=== PATIENT | female | born 1985 | race African-American/Black ===

== ENCOUNTER 2017-08-05 02:30 | Emergency (ER) | payer OTHER ==
[~2017-08-05] VITALS: Ht 165.1 cm; Wt 125.0 kg
[2017-08-05] MEDS ORDERED: KETOROLAC 30MG/ML VIAL IV STA (03:29)
[2017-08-05] MEDS ORDERED: ONDANSETRON HCL 4MG/2ML VIAL IV STA (03:29)
[2017-08-05 03:52] LABS: BASOPHILS % 0.6 % (0.0-2.0); EOSINOPHILS % 1.1 % (0.0-5.0); HEMATOCRIT. 37.1 % (36.0-48.0); HEMOGLOBIN. 11.8 g/dL (12.0-16.0); LYMPHOCYTES % 36.5 % (20.0-50.0); MEAN CORPUSCULAR HEMOGLOBIN 25.8 pg (28.0-32.0); MEAN PLATELET VOLUME 9.4 fl (7.4-10.4); MONOCYTES % 13.1 % (2.0-8.0); NEUTROPHILS % 48.7 % (40.0-76.0); PLATELET 269 x1000/uL (130-400); RED BLOOD CELL COUNT 4.58 mill/uL (4.2-5.4); RED CELL DISTRIBUTION WIDTH 14.5 % (11.6-14.6)
[2017-08-05 04:05] LABS: CARBON DIOXIDE 27 mEq/L (21-32); CHLORIDE 109 mEq/L (98-107); TROPONIN I < 0.02 ng/mL (0.00-0.04)
[2017-08-05 09:19] VITALS: BP 102/67
[2017-08-05] MEDS ORDERED: IOHEXOL-350 100 ML BOTTLE ONE (09:19)
== END 2017-08-05 09:42 | disposition home or self-care (01) ==
LOC: ER 02:30
DX: R07.89 Other chest pain (principal); R06.02 Shortness of breath
CPT/HCPCS: 36415; 71045; 71275; 80053; 81025; 84484; 85025; 85379; 93005; 96374; 96375; 99285; J1885; J2405; Q9967; Z7610

== ENCOUNTER 2017-12-08 22:55 | Emergency (ER) | payer MEDICAID, OTHER ==
[~2017-12-08] VITALS: Ht 165.1 cm; Wt 91.0 kg
[2017-12-09] MEDS ORDERED: SODIUM CHLORIDE 0.9% 1,000 ML IV ONE (00:53)
[2017-12-09 01:35] LABS: BASOPHILS % 0.4 % (0.0-2.0); EOSINOPHILS % 0.5 % (0.0-5.0); HEMATOCRIT. 34.1 % (36.0-48.0); HEMOGLOBIN. 11.2 g/dL (12.0-16.0); LYMPHOCYTES % 18.1 % (20.0-50.0); MEAN CORPUSCULAR HEMOGLOBIN 26.5 pg (28.0-32.0); MEAN CORPUSCULAR VOLUME 80.8 fL (81.0-99.0); MEAN PLATELET VOLUME 9.7 fl (7.4-10.4); MONOCYTES % 11.5 % (2.0-8.0); NEUTROPHILS % 69.5 % (40.0-76.0); PLATELET 276 x1000/uL (130-400); RED BLOOD CELL COUNT 4.22 mill/uL (4.2-5.4)
[2017-12-09 01:37] LABS: CHLORIDE 106 mEq/L (98-107)
[2017-12-09 01:54] LABS: CLARITY URINE CLEAR (CLEAR); COLOR URINE YELLOW (YELLOW); KETONES URINE NEGATIVE (NEGATIVE); LEUKOCYTE ESTERASE URINE NEGATIVE (NEGATIVE); NITRITE URINE NEGATIVE (NEGATIVE); OCCULT BLOOD URINE NEGATIVE (NEGATIVE); PH URINE 5.5 (4.5-8.0); PROTEIN URINE NEGATIVE (NEGATIVE); SPECIFIC GRAVITY URINE 1.019 (1.005-1.030); UROBILINOGEN URINE 0.2 E.U./dL (0.2-1.0)
[2017-12-09 04:39] VITALS: BP 120/70
== END 2017-12-09 04:41 | disposition home or self-care (01) ==
LOC: ER 22:55
DX: O26.892 Other specified pregnancy related conditions, second trimester (principal); M94.0 Chondrocostal junction syndrome [Tietze]; Z3A.21 21 weeks gestation of pregnancy
CPT/HCPCS: 36415; 80053; 81003; 83605; 83690; 84484; 85025; 93005; 99285; J7030; Z7610

== ENCOUNTER 2019-08-03 10:18 | Emergency (ER) | payer MEDICAID ==
[~2019-08-03] VITALS: Ht 165.1 cm; Wt 77.0 kg
[2019-08-03 11:09] VITALS: BP 140/92
== END 2019-08-03 18:29 | disposition left against medical advice (07) ==
LOC: ER 10:18
DX: Z53.21 Procedure and treatment not carried out due to patient leaving prior to being seen by health care provider (principal)